=== PATIENT | male | born 1960 | race Caucasian/White ===

== ENCOUNTER 2021-03-10 07:26 | Observation (INO) ==
[2021-03-10 08:04] LABS: Basophils # 0.1 K/mcL (0.0-0.2); Basophils % 0.8 %; Eosinophils # 0.5 K/mcL (0.0-0.6); Eosinophils % 5.3 %; Hematocrit 44.5 % (37.5-50.1); Hemoglobin 15.3 g/dL (12.9-16.9); Immature Granulocytes % 0.6 % (0-4); Lymphocytes # 2.7 K/mcL (0.6-4.6); Lymphocytes % 31.3 %; Mean Corpuscular HGB Conc 34.4 g/dL (31.6-35.5); Mean Corpuscular Hemoglobin 31.3 pg (28.0-33.3); Mean Platelet Volume 8.9 fL (9.4-12.4); Monocytes # 0.7 K/mcL (0.0-1.3); Monocytes % 8.1 %; Neutrophils # 4.6 K/mcL (1.6-8.9); Platelet Count 295 K/mcL (140-400); Red Blood Count 4.89 M/mcL (4.19-5.50); Red Cell Distribution Width 13.4 % (11.5-14.5); Segmented Neutrophils % 53.9 %; White Blood Count 8.5 K/mcL (4.3-11.1)
[2021-03-10 08:11] LABS: INR 1.1; Prothrombin Time 12.7 Seconds (9.4-12.1)
[2021-03-10 08:14] LABS: Activated Partial Thrombo Time 27.6 Seconds (26.0-36.0)
[2021-03-10] MEDS: Nitroglycerin 0.4 MG TAB.SUBL SL SCH ×3 (08:19→11:10)
[2021-03-10 08:27] LABS: Alanine Aminotransferase 34 Units/L (7-52); Albumin 4.3 g/dL (3.5-5.7); Albumin/Globulin Ratio 1.7 (1.1-2.2); Alkaline Phosphatase 56 Units/L (34-104); Aspartate Amino Transferase 30 Units/L (13-39); BUN/Creatinine Ratio 11 (6-26); Bilirubin,Direct 0.1 mg/dL (0.0-0.2); Bilirubin,Indirect 0.3 mg/dL (0.0-1.0); Bilirubin,Total 0.4 mg/dL (0.3-1.0); Blood Urea Nitrogen 9 mg/dL (6-20); Calcium 9.2 mg/dL (8.6-10.3); Carbon Dioxide 28 mEq/L (23-29); Chloride 100 mEq/L (98-107); Globulin 2.6 g/dL (2.4-3.5); Glucose 114 mg/dL (70-105); Lipase 36 Units/L (11-82); Magnesium 1.9 mg/dL (1.6-2.6); Osmolality,Calculated 280 (280-300); Phosphorous 2.6 mg/dL (2.7-4.5); Potassium 3.6 mEq/L (3.5-5.1); Sodium 135 mEq/L (136-145); Total Protein 6.9 g/dL (6.4-8.9); Troponin I < 0.03 ng/mL (< 0.04); eGFR For African Americans > 60 (> 60); eGFR For Non-African Americans > 60 (> 60)
[2021-03-10 08:39] LABS: Thyroid Stimulating Hormone 1.513 mcIU/mL (0.340-5.600)
[2021-03-10] MEDS ORDERED: *HR* LORazepam 1 MG TABLET PO ONE (09:49)
[2021-03-10] MEDS ORDERED: Melatonin 3 MG TABLET PO PRN (11:11)
[2021-03-10] MEDS ORDERED: Naloxone 0.4 MG/ML INJ IVP PRN (11:11)
[2021-03-10] MEDS ORDERED: Acetaminophen 325 MG TABLET PO PRN (11:11)
[2021-03-10] MEDS ORDERED: Ondansetron 4 MG/2 ML VIAL IVP PRN (11:11)
[2021-03-10] MEDS: hydroCHLOROthiazide 25 MG TABLET PO SCH (12:49)
[2021-03-10] MEDS: FLUoxetine 20 MG CAPSULE PO SCH (12:49)
[2021-03-10] MEDS: clonazePAM 1 MG TABLET PO PRN (13:04)
[2021-03-10] MEDS ORDERED: *HR* LORazepam 2 MG/ML VIAL IVP ONE (22:31)
[2021-03-11 05:04] LABS: Hematocrit 43.3 % (37.5-50.1); Hemoglobin 14.8 g/dL (12.9-16.9); Mean Corpuscular HGB Conc 34.2 g/dL (31.6-35.5); Mean Corpuscular Hemoglobin 31.4 pg (28.0-33.3); Mean Corpuscular Volume 91.7 fL (83.0-100.0); Mean Platelet Volume 8.8 fL (9.4-12.4); Platelet Count 263 K/mcL (140-400); Red Blood Count 4.72 M/mcL (4.19-5.50); Red Cell Distribution Width 13.3 % (11.5-14.5); White Blood Count 10.6 K/mcL (4.3-11.1)
[2021-03-11 05:19] LABS: BUN/Creatinine Ratio 12 (6-26); Blood Urea Nitrogen 9 mg/dL (6-20); Calcium 8.6 mg/dL (8.6-10.3); Carbon Dioxide 28 mEq/L (23-29); Chloride 102 mEq/L (98-107); Chol/HDL Ratio 3.2 (0-4.9); Cholesterol 139 mg/dL (< 200); Glucose 100 mg/dL (70-105); HDL Cholesterol 44 mg/dL (40-59); LDL Cholesterol,Calculated 78 mg/dL (< 100); Magnesium 1.9 mg/dL (1.6-2.6); Osmolality,Calculated 283 (280-300); Potassium 3.6 mEq/L (3.5-5.1); Sodium 137 mEq/L (136-145); Triglycerides 83 mg/dL (< 150); eGFR For African Americans > 60 (> 60); eGFR For Non-African Americans > 60 (> 60)
[2021-03-11] MEDS ORDERED: Regadenoson 0.4 MG/5 ML SYRINGE IVP ONE (06:07)
[2021-03-11] MEDS: clonazePAM 1 MG TABLET PO PRN (07:28)
[2021-03-11] MEDS ORDERED: Aspirin 81 MG TAB.CHEW PO SCH (09:00)
[2021-03-11] MEDS: FLUoxetine 20 MG CAPSULE PO SCH (09:42)
[2021-03-11] MEDS: hydroCHLOROthiazide 25 MG TABLET PO SCH (09:42)
[2021-03-11 15:53] VITALS: BP 186/99; PULSE 75; TEMP 98.6; O2SAT 95
[2021-03-11] MEDS ORDERED: *HR* Heparin 5,000 UNIT/ML VIAL SQ SCH (18:00)
[2021-03-12] MEDS ORDERED: LOSARTAN POTASSIUM 50 MG PO SCH (09:00)
== END 2021-03-11 17:15 | disposition left against medical advice (07) ==
LOC: 3BNU 07:26 → EMEROOARM 07:26 → 3BNU 11:47
PROVIDERS: ADMIT Internal Medicine; ATTEND Internal Medicine